=== PATIENT | female | born 1950 | race Caucasian/White ===

== ENCOUNTER 2017-03-18 00:27 | Emergency (ER) | payer OTHER ==
[~2017-03-18] VITALS: Ht 160 cm; Wt 71.3 kg
[2017-03-18] MEDS ORDERED: KEFLEX500 MG PO (03:10)
[2017-03-18 04:03] VITALS: BP 182/59
== END 2017-03-18 04:04 | disposition home or self-care (01) ==
LOC: EME 00:27 → EXP 00:27
DX: S63.613A Unspecified sprain of left middle finger, initial encounter (principal); S63.615A Unspecified sprain of left ring finger, initial encounter; W01.10XA Fall on same level from slipping, tripping and stumbling with subsequent striking against unspecified object, initial encounter
CPT/HCPCS: 73130; 99281; 99284